=== PATIENT | female | born 1980 ===

== ENCOUNTER 2018-07-26 19:50 | Emergency (ER) | payer SELFPAY ==
--- NOTE | 2018-07-26 20:05 | C.PDOC ---
History Of Present Illness 38yo female, otherwise well, comes to ER with complaints of chest pain, present intermittently since 6:45pm today. She describes the pain as a pressure like and "heavy" sensation. Patient denies taking any medications for her symptoms. She denies any fever, chills, weakness, abdominal pain, or shortness of breath. She has no additional medical complaints. PMD: None Time Seen by Provider: 07/26/18 20:05 Chief Complaint (Nursing): Chest Pain History Per: Patient History/Exam Limitations: no limitations Onset/Duration Of Symptoms: Hrs, Intermittent Episodes Current Symptoms Are (Timing): Still Present Quality: Pressure Associated Symptoms: denies: Nausea, Dyspnea, Diaphoresis, Syncope Additional History Per: Patient Past Medical History Reviewed: Historical Data, Nursing Documentation, Vital Signs Vital Signs: Last Vital Signs Temp 98.6 F 07/26/18 22:31 Pulse 60 07/26/18 22:20 Resp 17 07/26/18 22:20 BP 101/64 07/26/18 22:20 Pulse Ox 98 07/26/18 22:30 - Medical History PMH: No Chronic Diseases Surgical History: No Surg Hx Family History: States: No Known Family Hx - Social History Hx Alcohol Use: No Hx Substance Use: No - Immunization History Hx Tetanus Toxoid Vaccination: No Hx Influenza Vaccination: No Hx Pneumococcal Vaccination: No Review Of Systems Except As Marked, All Systems Reviewed And Found Negative. Constitutional: Negative for: Fever, Chills Cardiovascular: Positive for: Chest Pain Respiratory: Negative for: Shortness of Breath Gastrointestinal: Negative for: Nausea, Vomiting, Abdominal Pain Neurological: Negative for: Weakness Physical Exam - Physical Exam Appears: Non-toxic, No Acute Distress Skin: Normal Color, Warm, Dry Head: Atraumatic, Normacephalic Eye(s): bilateral: Normal Inspection Throat: Normal Neck: Normal, Supple Chest: Symmetrical, No Tenderness Cardiovascular: Rhythm Regular, No Murmur Respiratory: Normal Breath Sounds Gastrointestinal/Abdominal: Normal Exam, Soft, No Tenderness Back: Normal Inspection Extremity: Normal ROM, No Pedal Edema Neurological/Psych: Oriented x3 ED Course And Treatment - Laboratory Results Result Diagrams: 07/26/18 20:49 07/26/18 20:49 O2 Sat by Pulse Oximetry: 98 (RA) Pulse Ox Interpretation: Normal - Radiology CXR: Interpreted by Me, Viewed By Me CXR Interpretation: Yes: No Acute Disease Medical Decision Making Medical Decision Making: No tearing chest pain, no recent cough or congestion. U/L PNA or dissection. No hx of blood clots, no leg swelling, no recent trauma / surgery, no other additional wells criteria- Low pretest wells and PERC out: U/L PE No recent weight loss, difficulty w/ transit w/ food: u/l cancer or esophageal tear. Low risk CP Heart Score: 1 Story: 1 Age: 0 RF: 0 EK Troponin: 0 To follow up w/ cards Low risk wells, cleared by PERC. Disposition - Disposition Referrals: [facility] at [facility] [Outside] John Redmond MD [Staff Provider] - Disposition: HOSPITALIZED Disposition Time: 22:00 Condition: GOOD Additional Instructions: SANTO PICKENS, thank you for letting us take care of you today. Your provider was Jewel Mckeon and you were treated for CHEST PAIN. The emergency medical care you received today was directed at your acute symptoms. If you were prescribed any medication, please fill it and take as directed. It may take several days for your symptoms to resolve. Return to the Emergency Department if your symptoms worsen, do not improve, or if you have any other problems. Please contact your doctor or call one of the physicians/clinics you have been referred to that are listed on the Patient Visit Information form that is included in your discharge packet. Bring any paperwork you were given at discharge with you along with any medications you are taking to your follow up visit. Our treatment cannot replace ongoing medical care by a primary care provider outside of the emergency department. Thank you for allowing the [facility] team to be part of your care today. If you had an X-Ray or CT scan: A Radiologist will review the ED reading if any change in treatment is needed we will contact you. If you had a blood, urine, or wound culture: It will take several days for the results, if any change in treatment is needed we will contact you. If you had an STI test: It will take 48 hours for the results. Please call after 1 week if you have not heard back. Instructions: Chest Pain, Chest Pain That Is Not Caused by the Heart (DC) Forms: [employer] (Ivorian) - POA Core Measure Indicators: Chest Pain - Clinical Impression Clinical Impression: Chest pain - Scribe Statement The provider has reviewed the documentation as recorded by the Elma Orantes Provider Attestation: All medical record entries made by the Elma were at my direction and personally dictated by me. I have reviewed the chart and agree that the record accurately reflects my personal performance of the history, physical exam, medical decision making, and the department course for this patient. I have also personally directed, reviewed, and agree with the discharge instructions and disposition.
[2018-07-26 20:53] LABS: HEMOGLOBIN 11.8 g/dL (11.0-16.0); MEAN CELL VOLUME 82.3 fL (81.0-99.0); MEAN CORPUSCULAR HEMOGLOBIN 27.8 pg (27.0-31.0); MEAN CORPUSCULAR HGB CONC 33.8 g/dL (33.0-37.0); MEAN PLATELET VOLUME 7.3 fL (7.2-11.7); RBC 4.25 Mil/uL (3.80-5.20); RED CELL DISTRIBUTION WIDTH 14.4 % (11.5-14.5); WHITE BLOOD COUNT 9.2 K/uL (4.8-10.8)
[2018-07-26 21:05] LABS: ALB/GLOB RATIO 1.3 (1.0-2.1); ALBUMIN 4.2 g/dL (3.5-5.0); ALT/SGPT 24 U/L (9-52); AST/SGOT 16 U/L (14-36); BLOOD UREA NITROGEN 18 mg/dL (7-17); CALCIUM 8.8 mg/dl (8.6-10.4); GFR NON-AFRICAN AMERICAN > 60
[2018-07-26 22:20] VITALS: BP 101/64; PULSE 60; RESP 17; TEMP 98.6
[2018-07-26 22:29] VITALS: O2SAT 98
--- NOTE | 2018-07-27 07:44 | RAD ---
Date of service: 07/26/2018 HISTORY: chest pain COMPARISON: No prior. TECHNIQUE: Chest PA and lateral FINDINGS: LUNGS: No active pulmonary disease. PLEURA: No significant pleural effusion identified. No pneumothorax apparent. CARDIOVASCULAR: Normal. OSSEOUS STRUCTURES: No significant abnormalities. VISUALIZED UPPER ABDOMEN: Normal. OTHER FINDINGS: None. IMPRESSION: No acute cardiopulmonary disease appreciated.
--- NOTE | 2018-07-27 17:50 | CARD ---
APPROVED REPORT Date of service: 07/26/2018 EKG Measurement Heart [id number] <Conclusion> Normal sinus rhythm Normal ECG
== END 2018-07-26 22:34 | disposition home or self-care (01) ==
LOC: C.ER 19:50
DX: R07.9 Chest pain, unspecified (principal)

== ENCOUNTER 2018-12-14 17:20 | Emergency (ER) | payer SELFPAY ==
[2018-12-14 17:55] VITALS: BP 123/69; PULSE 83; RESP 18; TEMP 98.3; O2SAT 98
[2018-12-14 18:55] LABS: INFLUENZA A B NEGATIVE FOR FLU A/B (NEGATIVE)
--- NOTE | 2018-12-14 18:55 | C.PDOC ---
History Of Present Illness 38 y/o female presents c/o of sore throat x 2 days. She admits to odynophagia, otalgia , and headache. She rates it 6/10. She denies recent travel but admits to sick contacts (friend at school and neighbor). She is not on any medications. She denies fever, weakness, dizziness, neck pain, nasal drainage, chest pain, N/V, and abdominal pain. Time Seen by Provider: 12/14/18 18:25 Chief Complaint (Nursing): Flu-like Symptoms History Per: Patient History/Exam Limitations: no limitations Onset/Duration Of Symptoms: Days (2) Current Symptoms Are (Timing): Still Present Location Of Pain: Throat Sick Contacts (Context): Friend(s) Associated Symptoms: Sore Throat, Other (headache, otalgia ). denies: Fever, Chills, Cough, Sputum, Neck Pain, Sinus Drainage, Myalgias, Nasal Congestion, Nausea, Vomiting, Diarrhea Ear Symptoms: Left: Ear Pain Severity: Moderate Pain Scale Rating Of: 6 Recent travel outside of the [place]: No Past Medical History Reviewed: Historical Data, Nursing Documentation, Vital Signs Vital Signs: Last Vital Signs Temp 98.3 F 12/14/18 17:52 Pulse 83 12/14/18 17:52 Resp 18 12/14/18 17:52 BP 123/69 12/14/18 17:52 Pulse Ox 98 12/14/18 17:52 - Medical History Other PMH: ovarian cyst, endometriosis Surgical History: Family History: States: No Known Family Hx - Social History Hx Alcohol Use: No Hx Substance Use: No - Immunization History Hx Tetanus Toxoid Vaccination: No Hx Influenza Vaccination: No Hx Pneumococcal Vaccination: No Review Of Systems Constitutional: Negative for: Fever, Chills, Sweats, Weakness Eyes: Negative for: Pain ENT: Positive for: Ear Pain (today for a few secs), Throat Pain, Throat Swelling. Negative for: Nose Discharge, Nose Congestion Cardiovascular: Negative for: Chest Pain, Palpitations Respiratory: Negative for: Cough, Shortness of Breath Gastrointestinal: Negative for: Nausea, Vomiting, Abdominal Pain Musculoskeletal: Negative for: Neck Pain Skin: Negative for: Rash Neurological: Negative for: Weakness Physical Exam - Physical Exam Appears: Well, Non-toxic, No Acute Distress Skin: Normal Color, Warm, Dry Head: Atraumatic, Normacephalic, No Tenderness Eye(s): bilateral: Normal Inspection, PERRL Nose: No Discharge, Other (nares patent bilaterally ) Oral Mucosa: Moist Tongue: Normal Appearing Throat: Erythema, No Exudate Neck: Normal ROM, Supple Lymphatic: No Adenopathy Chest: Symmetrical Cardiovascular: Rhythm Regular Respiratory: Normal Breath Sounds, No Wheezing Gastrointestinal/Abdominal: Bowel Sounds, Soft, No Tenderness Neurological/Psych: Oriented x3, Normal Speech, Normal Cognition, Normal Sensation ED Course And Treatment O2 Sat by Pulse Oximetry: 98 Progress Note: Strep and Flu negative Medical Decision Making Medical Decision Making: A/P: Pharyngitis - start Amox 500mg BID x 10 days - recommend Chloroseptic lozenges/spray for pain relief - recommend Tylenol prn pain - follow up with Scouring Machine Operator if symptoms persist or worsen - patient verbalized understanding Disposition Counseled Patient/Family Regarding: Studies Performed (strep and flu swabs), Diagnosis, Need For Followup - Disposition Referrals: [facility] at [facility] [Outside] Disposition: HOME/ ROUTINE Disposition Time: 19:35 Condition: IMPROVED Additional Instructions: SANTO PICKENS, thank you for letting us take care of you today. Your provider was Jewel Mckeon and you were treated for THROAT PAIN/SOB. The emergency medical care you received today was directed at your acute symptoms. If you were prescribed any medication, please fill it and take as directed. It may take several days for your symptoms to resolve. Return to the Emergency Department if your symptoms worsen, do not improve, or if you have any other problems. Please contact your doctor or call one of the physicians/clinics you have been referred to that are listed on the Patient Visit Information form that is includ ed in your discharge packet. Bring any paperwork you were given at discharge with you along with any medications you are taking to your follow up visit. Our treatment cannot replace ongoing medical care by a primary care provider outside of the emergency department. Thank you for allowing the [facility] team to be part of your care today. Prescriptions: Amoxicillin [Amoxil 500 mg Cap] 500 mg PO BID #20 cap Instructions: Bacterial Upper Respiratory Infection, Adult (DC), Sore Throat, Adult (DC) Forms: [employer] (Iranian) Print Language: ARMENIAN - Clinical Impression Clinical Impression: Pharyngitis, Sore throat - PA / SENIOR QUALITY ANALYST / Resident Statement MD/DO has reviewed & agrees with the documentation as recorded.
== END 2018-12-14 19:39 | disposition home or self-care (01) ==
LOC: C.ER 17:20
DX: J02.9 Acute pharyngitis, unspecified (principal)

== ENCOUNTER 2019-01-16 15:00 | Outpatient (CLI) | payer SELFPAY | END 2019-01-16 15:01 | disposition home or self-care (01) | LOC: C.MAMMO 15:00 | DX: Z12.31 Encounter for screening mammogram for malignant neoplasm of breast (principal) ==

== ENCOUNTER 2019-01-18 08:47 | Emergency (ER) | payer SELFPAY ==
[2019-01-18 09:00] VITALS: BMI 31.6
[2019-01-18 09:04] VITALS: RESP 18
--- NOTE | 2019-01-18 09:49 | C.PDOC ---
History Of Present Illness 39 y/o female presents to the ED complaining she developed two small lesions to the vaginal area. Also reports a small lesion to the lower abdomen. States she is concerned for herpes. On arrival to the ED patient appears anxious. States she had a recent tooth extraction due to infection, and is on Amoxicillin currently. Otherwise patient denies any fevers, chills, abdominal pain, nausea, or vomiting. Denies having recent sexual partners. Time Seen by Provider: 01/18/19 09:12 Chief Complaint (Nursing): Abnormal Skin Integrity History Per: Patient History/Exam Limitations: no limitations Onset/Duration Of Symptoms: Days Current Symptoms Are (Timing): Still Present Past Medical History Reviewed: Historical Data, Nursing Documentation, Vital Signs Vital Signs: Last Vital Signs Temp 98.0 F 01/18/19 09:00 Pulse 84 01/18/19 09:00 Resp 18 01/18/19 09:00 BP 118/73 01/18/19 09:00 Pulse Ox 99 01/18/19 09:00 Surgical History: Family History: States: Unknown Family Hx - Social History Hx Tobacco Use: No Hx Alcohol Use: No Hx Substance Use: No - Immunization History Hx Tetanus Toxoid Vaccination: No Hx Influenza Vaccination: No Hx Pneumococcal Vaccination: No Review Of Systems Except As Marked, All Systems Reviewed And Found Negative. Constitutional: Negative for: Fever, Chills Gastrointestinal: Negative for: Vomiting, Abdominal Pain Genitourinary: Negative for: Dysuria, Frequency Skin: Positive for: Lesions (two to vaginal area, one to lower abdomen) Neurological: Negative for: Weakness Physical Exam - Physical Exam Appears: Well, Non-toxic, No Acute Distress Skin: Warm, Dry Head: Atraumatic, Normacephalic Eye(s): bilateral: Normal Inspection Neck: Normal ROM Chest: Symmetrical Cardiovascular: Rhythm Regular, No Murmur Respiratory: No Accessory Muscle Use, Other (Lungs CTA bilaterally) Gastrointestinal/Abdominal: Soft, No Tenderness, Other (Old scar noted; at the right end of the scar there is one small raised lesion, which appears erythematous and irritated) Pelvic: Normal External Exam (Normal external genitalia), No Vaginal Discharge, Other (two small cystic structures noted, one on the left lower labia majora, one on the right upper labia majoria,; they are mobile with no erythema, induration, discharge, or fluctuance) Extremity: Bilateral: Atraumatic, Normal ROM (x 4) Neurological/Psych: Oriented x3 Gait: Steady ED Course And Treatment O2 Sat by Pulse Oximetry: 99 (RA) Pulse Ox Interpretation: Normal Medical Decision Making Medical Decision Making: Impression: Folliculitis (lesion to lower abdomen) Plan: Patient discharged home with RX for Clindamycin. Advised to follow up with PMD or return if worse. Disposition Counseled Patient/Family Regarding: Diagnosis, Need For Followup, Rx Given - Disposition Referrals: [facility] at [facility] [Outside] Disposition: HOME/ ROUTINE Disposition Time: 09:47 Condition: STABLE Prescriptions: Clindamycin [Cleocin] 1 cap PO QID #28 cap Instructions: Folliculitis (DC) Forms: [facility] (Tanzanian), Gen Discharge Inst Tanzanian - POA Present On Arrival: None - Clinical Impression Clinical Impression: Folliculitis - Scribe Statement The provider has reviewed the documentation as recorded by the Elma Cornejo Provider Attestation: All medical record entries made by the Elma were at my direction and personally dictated by me. I have reviewed the chart and agree that the record accurately reflects my personal performance of the history, physical exam, medical decision making, and the department course for this patient. I have also personally directed, reviewed, and agree with the discharge instructions and disposition.
[2019-01-18 09:54] VITALS: BP 125/79; PULSE 74; TEMP 98.8
[2019-01-18 11:13] VITALS: O2SAT 99
== END 2019-01-18 09:54 | disposition home or self-care (01) ==
LOC: C.ER 08:47
DX: L73.9 Follicular disorder, unspecified (principal)

== ENCOUNTER 2019-01-19 20:55 | Emergency (ER) | payer SELFPAY ==
[2019-01-19 20:56] VITALS: BMI 31.6
[2019-01-19 21:09] VITALS: BP 160/88; PULSE 88; RESP 20; TEMP 97.8; O2SAT 100
--- NOTE | 2019-01-19 22:20 | C.PDOC ---
History Of Present Illness The patient is a 39 year old female who was evaluated by her flowers salesperson on 01/10. Patient was noted to have several inclusion cysts to her vulva, and one of the areas was drained. Patient has been taking Amoxicillin since the visit. She was evaluated in this ED yesterday. She was noted to have an abscess to her right lower abdominal region and was discharged with prescription for Clindamycin. Patient returns today complaining of irritation to vulva with some shooting pains, and is concerned for herpes. She denies fever, chills. Time Seen by Provider: 01/19/19 21:18 Chief Complaint (Nursing): Female Genitourinary History Per: Patient History/Exam Limitations: no limitations Onset/Duration Of Symptoms: Hrs Current Symptoms Are (Timing): Still Present Quality Of Discomfort: "Pain" Associated Symptoms: denies: Fever, Chills Additional History Per: Patient Abnormal Vaginal Bleeding: No Past Medical History Reviewed: Historical Data, Nursing Documentation, Vital Signs Vital Signs: Last Vital Signs Temp 97.8 F 01/19/19 21:01 Pulse 88 01/19/19 21:01 Resp 20 01/19/19 21:01 BP 160/88 H 01/19/19 21:01 Pulse Ox 100 01/19/19 21:01 - Medical History PMH: HTN Surgical History: Family History: States: Unknown Family Hx - Social History Hx Tobacco Use: No Hx Alcohol Use: No Hx Substance Use: No - Immunization History Hx Tetanus Toxoid Vaccination: No Hx Influenza Vaccination: No Hx Pneumococcal Vaccination: No Review Of Systems Constitutional: Negative for: Fever, Chills, Weakness Eyes: Negative for: Redness, Other (scleral icterus ) ENT: Negative for: Mouth Swelling Cardiovascular: Negative for: Chest Pain Respiratory: Negative for: Cough, Shortness of Breath Gastrointestinal: Negative for: Nausea, Vomiting, Diarrhea Genitourinary: Positive for: Other (vulvar irritation ). Negative for: Dysuria, Hematuria Musculoskeletal: Negative for: Back Pain Skin: Negative for: Rash Neurological: Negative for: Weakness, Numbness, Dizziness Physical Exam - Physical Exam Appears: Well, Non-toxic, No Acute Distress Skin: Normal Color, Warm, No Rash Head: Atraumatic, Normacephalic Eye(s): bilateral: Normal Inspection (no scleral icterus ), PERRL, EOMI Ear(s): Bilateral: Normal (no drainage ) Nose: Normal Oral Mucosa: Moist Throat: Normal (no swelling or injection ), No Erythema, Other (airway patent ) Neck: Normal ROM, Supple Lymphatic: No Inguinal Node Tenderness Chest: Symmetrical Respiratory: No Accessory Muscle Use, Other (normal inspiratory effort) Gastrointestinal/Abdominal: Soft, No Distention Back: Other (ambulating with steady upright gait) Pelvic: No Vaginal Discharge (from vault ), Other (labia majora appears erythematous and irritated. no ulcerative lesions noted. no areas of induration noted. Doweler RN Nina ) Extremity: Normal ROM Extremity: Bilateral: Atraumatic Neurological/Psych: Oriented x3, Normal Cranial Nerves (grossly intact ) ED Course And Treatment O2 Sat by Pulse Oximetry: 100 (on RA) Pulse Ox Interpretation: Normal Medical Decision Making Medical Decision Making: Progress: Patient's symptoms based on physical exam findings seem to be indicative of fungal infection caused by antibiotic use. Patient will be prescribed anti-fungal cream and advised to follow up with her HOLLOW TILE PARTITION ERECTOR within 1-2 days for further evaluation. Disposition Counseled Patient/Family Regarding: Diagnosis, Need For Followup, Rx Given - Disposition Disposition: HOME/ ROUTINE Disposition Time: 22:19 Condition: STABLE Additional Instructions: Please make a follow up appointment with your millwright. Prescriptions: Clotrimazole 1% Vaginal [Lotrimin 1% Vaginal] 1 gm VG BID #1 tube Instructions: Vulvar Itching Forms: [facility] (Algerian), Gen Discharge Inst Algerian Print Language: SLOVENIAN - Clinical Impression Clinical Impression: Vulvovaginal itching - PA / FRUIT DRYER / Resident Statement MD/DO has reviewed & agrees with the documentation as recorded. - Scribe Statement The provider has reviewed the documentation as recorded by the Scribe (Jordyn Mora) All medical record entries made by the Scribe were at my direction and perso maria luisa dictated by me. I have reviewed the chart and agree that the record accurately reflects my personal performance of the history, physical exam, medical decision making, and the department course for this patient. I have also personally directed, reviewed, and agree with the discharge instructions and disposition.
== END 2019-01-19 22:24 | disposition home or self-care (01) ==
LOC: C.ER 20:55
DX: L29.8 Other pruritus (principal)

== ENCOUNTER 2019-01-20 11:56 | Outpatient (CLI) | payer SELFPAY | END 2019-01-20 11:57 | disposition home or self-care (01) | LOC: C.LAB 11:56 | DX: R10.2 Pelvic and perineal pain (principal) ==

== ENCOUNTER 2019-02-01 08:46 | Outpatient (CLI) | payer OTHER | END 2019-02-01 08:47 | disposition home or self-care (01) | LOC: C.LAB 08:46 | DX: Z01.419 Encounter for gynecological examination (general) (routine) without abnormal findings (principal) ==

== ENCOUNTER 2019-02-06 10:06 | Outpatient (CLI) | payer OTHER, SELFPAY | END 2019-02-06 10:07 | disposition home or self-care (01) | LOC: C.MAMMO 10:06 ==

== ENCOUNTER 2019-02-13 14:03 | Outpatient (CLI) | payer OTHER | END 2019-02-13 14:04 | disposition home or self-care (01) | LOC: C.LAB 14:03 | DX: Z09 Encounter for follow-up examination after completed treatment for conditions other than malignant neoplasm (principal) ==

== ENCOUNTER 2019-03-22 21:40 | Emergency (ER) | payer OTHER ==
[2019-03-22 21:40] VITALS: BMI 31.6
[2019-03-22 21:53] VITALS: TEMP 98.1; O2SAT 100
[2019-03-22 22:35] LABS: SQUAMOUS EPITHIAL 3 /hpf (0-5); URINE BILIRUBIN NEGATIVE (NEGATIVE); URINE BLOOD 3+ (NEGATIVE); URINE CLARITY Clear (Clear); URINE COLOR Yellow (YELLOW); URINE GLUCOSE (UA) NORMAL (Normal); URINE LEUKOCYTE ESTERASE NEG Leu/uL (Negative); URINE PROTEIN NEGATIVE (NEGATIVE); URINE UROBILINOGEN NORMAL mg/dL (0.2-1.0)
--- NOTE | 2019-03-22 23:31 | C.PDOC ---
History Of Present Illness 39 year old female presents with pain to the right groin. Patient recently had two bartholin cyst, one that ruptured and another that spontaneously resolved on its own. She reports 4 days ago she began having groin pain that worsens with movement and walking, and now with sitting. Denies fever, chills, or urinary symptoms. Patient currently has her period which is normal. She has no vaginal discharge. She does have a past history of ovarian cyst. Time Seen by Provider: 03/22/19 23:03 Chief Complaint (Nursing): Female Genitourinary History Per: Patient History/Exam Limitations: no limitations Onset/Duration Of Symptoms: Days (4) Current Symptoms Are (Timing): Still Present Quality Of Discomfort: Unable To Describe Associated Symptoms: denies: Fever, Chills, Urinary Symptoms Recent travel outside of the [place]: No Past Medical History Reviewed: Historical Data, Nursing Documentation, Vital Signs Vital Signs: Last Vital Signs Temp 98.1 F 03/22/19 21:49 Pulse 75 03/22/19 21:49 Resp 18 03/22/19 21:49 BP 126/81 03/22/19 21:49 Pulse Ox 100 03/22/19 21:49 Primary Care Provider: Emanuel Kelly Medical History PMH: HTN Denies: Chronic Kidney Disease Surgical History: Family History: States: Unknown Family Hx - Social History Hx Tobacco Use: No Hx Alcohol Use: No Hx Substance Use: No - Immunization History Hx Tetanus Toxoid Vaccination: No Hx Influenza Vaccination: No Hx Pneumococcal Vaccination: No Review Of Systems Constitutional: Negative for: Fever, Chills Cardiovascular: Negative for: Chest Pain, Palpitations Respiratory: Negative for: Cough, Shortness of Breath Gastrointestinal: Negative for: Nausea, Vomiting Genitourinary: Positive for: Other (Right groin pain). Negative for: Dysuria, Hematuria Neurological: Negative for: Weakness, Numbness Physical Exam - Physical Exam Appears: Non-toxic Skin: Normal Color, Warm Head: Atraumatic, Normacephalic Eye(s): bilateral: Normal Inspection Oral Mucosa: Moist Chest: Symmetrical, No Tenderness Cardiovascular: Rhythm Regular Respiratory: Normal Breath Sounds, No Rales, No Rhonchi, No Wheezing Gastrointestinal/Abdominal: Soft, No Tenderness Back: No CVA Tenderness Pelvic: Other (Normal external genitalia. No enlarged lymphnodes.) Neurological/Psych: Oriented x3, Normal Speech ED Course And Treatment - Laboratory Results Result Diagrams: 03/22/19 23:59 03/22/19 23:59 Lab Results: Urine Color Yellow (YELLOW) 03/22/19 22:18 Urine Clarity Clear (Clear) 03/22/19 22:18 Urine pH 6.0 (5.0-8.0) 03/22/19 22:18 Ur Specific [place] 1.015 (1.003-1.030) 03/22/19 22:18 Urine Protein Negative mg/dL (NEGATIVE) 03/22/19 22:18 Urine Glucose (UA) Normal mg/dL (Normal) 03/22/19 22:18 Urine Ketones Negative mg/dL (NEGATIVE) 03/22/19 22:18 Urine Blood 3+ (NEGATIVE) H 03/22/19 22:18 Urine Nitrate Negative (NEGATIVE) 03/22/19 22:18 Urine Bilirubin Negative (NEGATIVE) 03/22/19 22:18 Urine Urobilinogen Normal mg/dL (0.2-1.0) 03/22/19 22:18 Ur Leukocyte Esterase Neg Areli/uL (Negative) 03/22/19 22:18 Urine WBC (Auto) 2 /hpf (0-5) 03/22/19 22:18 Urine RBC (Auto) 3 /hpf (0-3) 03/22/19 22:18 Ur Squamous Epith Cells 3 /hpf (0-5) 03/22/19 22:18 Lab Interpretation: No Acute Changes O2 Sat by Pulse Oximetry: 100 (room air) Pulse Ox Interpretation: Normal Progress Note: Blood work and urinalysis ordered. Reevaluation Time: 00:38 Reassessment Condition: Unchanged Disposition Counseled Patient/Family Regarding: Studies Performed, Diagnosis, Need For Followup, Rx Given - Disposition Referrals: Emanuel Kelly MD [Staff Provider] - Disposition: HOME/ ROUTINE Disposition Time: 00:42 Condition: STABLE Prescriptions: Acetaminophen with Codeine [Tylenol with Codeine #3 Tablet] 1 each PO QID PRN #10 tablet PRN Reason: Pain, Severe (8-10) Forms: Gen Discharge Inst [place]inig, [facility] (Prydeinig) - Clinical Impression Clinical Impression: Right groin pain - Scribe Statement The provider has reviewed the documentation as recorded by the Scribvipin Vaughn All medical record entries made by the Scribe were at my direction and personally dictated by me. I have reviewed the chart and agree that the record accurately reflects my personal performance of the history, physical exam, medical decision making, and the department course for this patient. I have also personally directed, reviewed, and agree with the discharge instructions and disposition.
[2019-03-22 23:51] LABS: HCG,QUALITATIVE URINE NEGATIVE (NEGATIVE)
[2019-03-23 00:16] LABS: BASO % 0.5 % (0.0-2.0); EOS # 0.1 K/uL (0.0-0.7); EOS % 1.9 % (0.0-4.0); HEMOGLOBIN 10.8 g/dL (11.0-16.0); LYMPH # 2.7 K/uL (1.0-4.3); MEAN CELL VOLUME 81.2 fL (81.0-99.0); MEAN CORPUSCULAR HEMOGLOBIN 26.3 pg (27.0-31.0); MEAN CORPUSCULAR HGB CONC 32.4 g/dL (33.0-37.0); MEAN PLATELET VOLUME 7.1 fL (7.2-11.7); MONO # 0.6 K/uL (0.0-0.8); MONO % 7.7 % (0.0-10.0); NEUT # 4.1 K/uL (1.8-7.0); NEUT % 53.9 % (50.0-75.0); RBC 4.1 Mil/uL (3.80-5.20); RED CELL DISTRIBUTION WIDTH 15.9 % (11.5-14.5); WHITE BLOOD COUNT 7.6 K/uL (4.8-10.8)
[2019-03-23 00:28] LABS: ALB/GLOB RATIO 1.2 (1.0-2.1); ALT/SGPT 23 U/L (9-52); AST/SGOT 20 U/L (14-36); BLOOD UREA NITROGEN 15 mg/dL (7-17); CALCIUM 8.8 mg/dl (8.6-10.4); GFR NON-AFRICAN AMERICAN > 60
[2019-03-23] MEDS ORDERED: Acetaminophen-Codeine 300/30 mg Tab PO STA (00:45)
[2019-03-23] MEDS ORDERED: Acetaminophen-Codeine 300/30 mg Tab PO ONE (00:53)
[2019-03-23 00:55] VITALS: BP 110/70; PULSE 70; RESP 14
== END 2019-03-23 00:55 | disposition home or self-care (01) ==
LOC: C.ER 21:40
DX: R10.31 Right lower quadrant pain (principal)

== ENCOUNTER 2019-04-12 09:09 | Emergency (ER) | payer OTHER | END 2019-04-12 11:33 | disposition home or self-care (01) | LOC: C.ER 09:09 ==